=== PATIENT | male | born 1940 | race Caucasian/White ===

== ENCOUNTER 2016-07-30 07:15 | Day surgery (SDC) | payer MEDICARE, BC ==
--- NOTE | ~2016-07-30 | EGD ---
EGD REPORT [facility] [address] [address] NAME: RAMOS LOPES : 36 STATUS : REG [facility]#: [id number] AGE: 75 ADM/REG DATE : 07/30/16 MR#: [id number] REPORT SERV DATE: 07/30/16 DICTATED BY: YAYO CREWS DATE: 07/30/16 REPORT STATUS : Draft TRANSCRIBED BY: [facility] DATE: 07/30/16 Endoscopy Center Patient Name: Ramos Lopes Date of : 1940 Attending MD: YAYO CREWS MD Procedure Date No Time: 07/30/2016 Procedure: Colonoscopy Indications: Screening for colorectal malignant neoplasm, This is the patient's first colonoscopy, Incidental scant hematochezia, History of prostate cancer treated without radiotherapy Referring MD: MACEY GIL MD Medicines: Propofol per Anesthesia Complications: No immediate complications. Estimated blood loss: None. Procedure: Pre-Anesthesia Assessment: - After reviewing the risks and benefits, the patient was deemed in satisfactory condition to undergo the procedure. - Prior to the procedure, a History and Physical was performed, and patient medications and allergies were reviewed. The patient's tolerance of previous anesthesia was also reviewed. The risks and benefits of the procedure and the sedation options and risks were discussed with the patient. All questions were answered, and informed consent was obtained. Prior Anticoagulants: The patient has taken no previous anticoagulant or antiplatelet agents. ASA Grade Assessment: III - A patient with severe systemic disease. After reviewing the risks and benefits, the patient was deemed in satisfactory condition to undergo the procedure. After I obtained informed consent, the scope was passed under direct vision. Throughout the procedure, the patient's blood pressure, pulse, and oxygen saturations were monitored continuously. The CF [id number] was introduced through the anus and advanced to the cecum, identified by appendiceal orifice and ileocecal valve. The colonoscopy was performed without difficulty. The ileocecal valve and appendiceal orifice were photographed. The patient tolerated the procedure well. The quality of the bowel preparation was adequate to identify polyps 6 mm and larger in size after copious lavage. The bowel preparation used was an extended prep with polyethylene glycol (PEG) and magnesium citrate. Scope withdrawal time was greater than 8 minutes. EGD REPORT [address] [id number] [place]. [address] NAME: RAMOS LOPES : 36 STATUS : REG [facility]#: [id number] AGE: 75 ADM/REG DATE : 07/30/16 MR#: [id number] REPORT SERV DATE: 07/30/16 DICTATED BY: YAYO CREWS DATE: 07/30/16 REPORT STATUS : Draft TRANSCRIBED BY: [email or web address] DATE: 07/30/16 Findings: The perianal and digital rectal examinations were normal. Pertinent negatives include normal sphincter tone. Non-bleeding internal hemorrhoids were found during anoscopy and were small and Grade I (internal hemorrhoids that do not prolapse). A few small-mouthed diverticula were found in the entire colon. A sessile polyp was found in the transverse colon. The polyp was 6 mm in size. The polyp was removed with a hot snare. Resection and retrieval were complete. Estimated blood loss: none. The exam was otherwise without abnormality. Impression: - Non-bleeding internal hemorrhoids. - Mild diverticulosis in the entire examined colon. - One 6 mm polyp in the transverse colon. Resected and retrieved. - The examination was otherwise normal. - Chronic constipation exacerbated by chronic calcium-carissa therapy. Recommendation: - Discharge patient to home (ambulatory). - High fiber diet indefinitely. - Continue present medications. - Await pathology results. - Repeat colonoscopy in 5 years for surveillance. - Return to GI clinic PRN. - Patient has a contact number available for emergencies. The signs and symptoms of potential delayed complications were discussed with the patient. Return to normal activities tomorrow. Written discharge instructions were provided to the patient. Procedure Code(s): --- Professional --- 49817, Colonoscopy, flexible, proximal to splenic flexure; with removal of tumor(s), polyp(s), or other lesion(s) by snare technique Diagnosis Code(s): --- Professional --- K64.0, First degree hemorrhoids K57.30, Diverticulosis of large intestine without perforation or abscess without bleeding D12.3, Benign neoplasm of transverse colon Z12.11, Encounter for screening for malignant neoplasm of colon CPT copyright 2013 [employer]. All rights reserved. EGD REPORT [facility] [address] [address] NAME: RAMOS LOPES : 36 STATUS : REG [facility] PAT#: [id number] AGE: 75 ADM/REG DATE : 07/30/16 MR#: [id number] REPORT SERV DATE: 07/30/16 DICTATED BY: YAYO CREWS DATE: 07/30/16 REPORT STATUS : Draft TRANSCRIBED BY: [employer] DATE: 07/30/16 The codes documented in this report are preliminary and upon braille coder review may be revised to meet current compliance requirements. YAYO CREWS MD 07/30/2016 9:20 AM This report has been signed electronically. Number of Addenda: 0 Note Initiated On: 07/30/2016 8:41 AM Scope Withdrawal Time 0 hours 8 minutes 36 seconds [address] [facility] [place] [address]
[~2016-07-30 07:15] MED LIST: AMB10 PO; ASAB PO; BENICAR20 PO; CYMBALTA60 PO; DILACOR X2 PO; HYTRIN10 MG PO; TYLENOL PM PO; VICODINTAB PO; ZYRTEC ALLGY10 MG PO
== END 2016-07-30 23:59 | disposition home or self-care (01) ==
LOC: DMU 07:15
PROVIDERS: Internal Medicine Gastroenterology
PROC: 0DBL8ZX Excision of Transverse Colon, Via Natural or Artificial Opening Endoscopic, Diagnostic (ICD-10-PCS; principal; 2016-07-30 08:30)
DX: Z12.11 Encounter for screening for malignant neoplasm of colon (principal); D12.3 Benign neoplasm of transverse colon; K57.30 Diverticulosis of large intestine without perforation or abscess without bleeding; K64.0 First degree hemorrhoids; I10 Essential (primary) hypertension; F32.9 Major depressive disorder, single episode, unspecified; E66.9 Obesity, unspecified; Z86.73 Personal history of transient ischemic attack (TIA), and cerebral infarction without residual deficits; Z98.890 Other specified postprocedural states
CPT/HCPCS: 88305